=== PATIENT | female | born 1990 | race Caucasian/White ===

== ENCOUNTER → 2017-04-13 | Outpatient (CLI) | payer MEDICAID ==
[~2017-04-13] MED LIST: OXYC-360 PO
== END ==
LOC: HPND 10:17
DX: Z36 Encounter for antenatal screening of mother (principal); Z3A.18 18 weeks gestation of pregnancy
CPT/HCPCS: 76811

== ENCOUNTER 2017-05-28 08:19 | Emergency (ER) | payer MEDICAID ==
--- NOTE | 2017-05-28 09:07 | PD ---
HPI Chief Complaint Left lower abdominal pain that was really bad last night and kept her up and in tears . She's been having this pain for several weeks but last night it was worse Date Seen: May 28, 2017 Time Seen: 08:50 Travel History International Travel<30 Days: No Contact w/Intl Traveler<30Days: No Known Affected Area: No History of Present Illness HPI 27-year-old white female at [address] 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 and she has another child take care of so I believe she is just over done it Weeks Gestation: 24 Para: 1 : 2 History Obstetric History Obstetric History One vaginal delivery Social History Alcohol Use: No Tobacco Use: No Substance Abuse: No Allergies-Medications (Allergen,Severity, Reaction): Coded Allergies: No Known Allergies (Verified , 01/03/09) Home Meds Reported Medications Oxycodone/Acetaminophen (Percocet) 5 Mg/325 Mg Tab, 1 TAB PO Q4HPRN, #20 0 Refills FOR PAIN 01/05/09 Review of Systems General / Constitutional: No: Fever, Weight Gain, Chills, Other Eyes: No: Diploplia, Blurred Vision, Visual changes, Pain, Photophobia HENT: No: Headaches, Vertigo, Lightheadedness Cardiovascular: No: Irregular Rhythm, Chest Pain or Discomfort, Palpitations, Tachycardia, Syncope, Varicosities, Edema, Cyanosis Respiratory: No: Cough, Short of Breath, Other Gastrointestinal: Abdominal Pain, No: Nausea, Vomiting, Diarrhea Genitourinary: No: Decreased Urinary Output, Oliguria Musculoskeletal: No: Limited ROM, Weakness, Cramping, Edema, Pain Skin: No Rash, No Itching, No Dryness, No Lumps, No Change in Pigmentation, No Change in Nails, No Alopecia, No Lesions Neurologic: No: Weakness, Dizziness, Syncope, Focal Abnormalities, Coordination Problem, Headache, Slurred Speech, Seizures Psychiatric: No: Depression, Suicidal Ideations, Homicidal Ideation Endocrine: No: Heat Intolerance, Cold Intolerance, Polydipsia, Polyuria, Other Physical Exam Narrative GENERAL: Well-nourished, well-developed patient. SKIN: Warm and dry. HEAD: Normocephalic and atraumatic. EYES: No scleral icterus. No injection or drainage. ENT: No nasal drainage noted. Mucous membranes pink. Airway patent. NECK: Supple, trachea midline. No JVD. CARDIOVASCULAR: Regular rate and rhythm without murmurs, gallops, or rubs. RESPIRATORY: Breath sounds equal bilaterally. No accessory muscle use. BREASTS: Bilateral exam showed no masses , no retractions, no nipple discharge. ABDOMEN/GI: Abdomen soft, -tender in LLQ area size of baseball no mass , bowel sounds present, no rebound, no guarding Gravid to [-24] weeks size Fundal Height: [-24] GENITOURINARY: External Genitalia: intact and normal in appearance BUS glands: [-] Cervix: [post-] Dilatation: [-0] Effacement: [-0] Station: [-3] ] Membranes: [intact ] Uterine Contractions: [none-] FHT's: Category: [1-] Baseline: [133-] Reactive: [yes for 24 wks-] Variability: [mod-] Decels: [-0] EXTREMITIES: No cyanosis or edema. BACK: Nontender without obvious deformity. No CVA tenderness. NEUROLOGICAL: Awake and alert. Motor and sensory grossly within normal limits. Five out of 5 muscle strength in all muscle groups. Normal speech. Data Data Labs Urine dip is negative MDM Interpretation(s) Patient is 27-year-old white female at 24 weeks presents with lower abdominal pain in the left side specific area in the left lower quadrant that is the only spot is tender she has no other pain anywhere else in this been sore for several weeks but last night was really bad and the caused her tears and could not sleep and so she came in today. 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 Mccartney in a couple of days or return here Diagnosis Diagnosis: Primary Impression: Abdominal pain during in second trimester Additional Impression: 24 weeks gestation of Disposition: 01 DISCHARGE HOME Condition: Stable Jose Fierro II, MD May 28, 2017 09:07
[2017-05-28 10:38] LABS: BACTERIA, URINE OCC /hpf; BLOOD, URINE NEG (NEG); COMMENT (UR) CULT NOT INDICATED; CULTURE IF INDICATED CULT NOT INDICATED; GLUCOSE,URINE NEG (NEG); KETONE, URINE NEG (NEG); MUCUS URINE FEW /lpf (OCC); NITRITE,URINE NEG (NEG); PH, URINE 7.5 (5.0-8.5); SQUAMOUS EPITHELIAL CELL URINE 2 /hpf (0-5); URINE COLOR LIGHT-YELLOW (YELLW/STRAW)
== END 2017-05-28 09:29 | disposition home or self-care (01) ==
LOC: HOBED 08:19
DX: O26.892 Other specified pregnancy related conditions, second trimester (principal); R10.32 Left lower quadrant pain; Z3A.24 24 weeks gestation of pregnancy
CPT/HCPCS: 81001; 99283

== ENCOUNTER 2017-09-04 23:30 | Inpatient (IN) | payer MEDICAID ==
[~2017-09-04] VITALS: Ht 165.1 cm; Wt 95.0 kg
--- NOTE | 2017-09-04 23:50 | PD ---
HPI Chief Complaint LOF Travel History International Travel<30 Days: No Contact w/Intl Traveler<30Days: No Known Affected Area: No History of Present Illness HPI 27-year-old 001, IUP at 39.3 care uncomplicated except by interrupted care, history of son with the left nephrectomy due to hydronephrosis Patient presents complaining of leaking of fluid. She reports that she was awakened from sleep shortly after 10 PM by feeling a pop. She reports that she stood up and had a large gush of fluid and has been leaking ever since. She reports the contractions started about 10:30 to 11 PM and are now every 5 minutes. She reports they have increased in frequency but is still mild in nature. She reports good movement. She denies any vaginal bleeding. Weeks Gestation: 39 Para: 1 : 2 History Past Medical History Medical History: Denies Significant Hx Obstetric History Obstetric History 001 1 Past Surgical History Narrative Surgical Breast augmentation Family History Narrative Family History DM, HTN Social History Alcohol Use: No Tobacco Use: No Substance Abuse: No Allergies-Medications (Allergen,Severity, Reaction): Coded Allergies: No Known Allergies (Verified , 01/03/09) Home Meds Reported Medications Oxycodone/Acetaminophen (Percocet) 5 Mg/325 Mg Tab, 1 TAB PO Q4HPRN, #20 0 Refills FOR PAIN 01/05/09 Review of Systems Except as stated in HPI: all other systems reviewed are Neg Physical Exam Narrative GENERAL: Well-nourished, well-developed patient. SKIN: Warm and dry. HEAD: Normocephalic and atraumatic. EYES: No scleral icterus. No injection or drainage. ENT: No nasal drainage noted. Mucous membranes pink. Airway patent. NECK: Supple, trachea midline. No JVD. CARDIOVASCULAR: Regular rate and rhythm without murmurs, gallops, or rubs. RESPIRATORY: Breath sounds equal bilaterally. No accessory muscle use. BREASTS: Deferred ABDOMEN/GI: Abdomen soft, non-tender, bowel sounds present, no rebound, no guarding Gravid GENITOURINARY: External Genitalia: intact and normal in appearance. Grossly normal rugae, membranes appear to be grossly ruptured and amniosure is positive. No cervical or vaginal masses noted. SVE 3/80/-2 and cephalic FHT's: heart tones are in the 130s with moderate long-term variability, good accelerations, no decelerations noted. EXTREMITIES: No cyanosis or edema. BACK: Nontender without obvious deformity. NEUROLOGICAL: Awake and alert. Motor and sensory grossly within normal limits. Five out of 5 muscle strength in all muscle groups. Normal speech. Musculoskeletal: Grossly normal range of motion, gait, muscle strength Psychiatric: Grossly normal memory and affect MDM Plan Assessment/plan: 1. IUP at 38.3 2. PROM: Will admit for grossly ruptured membranes at term. Discussed with Dr. Abdi. We'll manage expectantly overnight and augment with oxytocin if indicated. Patient in agreement with the plan. 3. GBS negative 4. Reassuring testing with reactive NST and category 1 heart rate tracing, will continue monitoring 5. History of son with nephrectomy from hydronephrosis 6. Interrupted care Brandie Burgos MD Sep 04, 2017 23:50
[2017-09-04] MEDS: LACTATED RINGER'S 1000 ML INJ 1,000 ML IV SCH (23:58)
[2017-09-04] MEDS ORDERED: LACTATED RINGER'S 1000 ML INJ 1,000 ML IV PRN (23:58)
[2017-09-05] VITALS (57 sets, daily range): BP systolic 71–150; BP diastolic 34–91; PULSE 61–126; RESP 9–18; TEMP 97.8–98.9; O2SAT 97–100
[2017-09-05] MEDS ORDERED: OXYTOCIN 30 UNITS-500ML PREMIX 500 ML IV ONE
[2017-09-05] MEDS ORDERED: SODIUM CHLORID 0.9% 500 ML INJ 500 ML IV PRN
[2017-09-05] MEDS ORDERED: CITRIC ACID-SODIUM CITRATE LIQ 30 ML UDC PO SCH
[2017-09-05] MEDS ORDERED: MINERAL OIL 10 ML VIAL TOPICAL PRN
[2017-09-05] MEDS ORDERED: LIDOCAINE HCL 1% 50 ML VIAL INFIL PRN
[2017-09-05] MEDS ORDERED: LIDOCAINE HCL 1% 50 ML VIAL I-DERMAL PRN
[2017-09-05] MEDS ORDERED: SODIUM CHLOR 0.9% 1000 ML INJ 1,000 ML IV PRN (00:18)
[2017-09-05] MEDS ORDERED: PREN1TAB45 (00:21)
[2017-09-05 00:43] LABS: AUTOMATED NEUTROPHIL # 8.3 TH/MM3 (1.8-7.7); BASOPHIL % 0.4 % (0.0-2.0); EOSINOPHIL # 0.1 TH/MM3 (0-0.4); EOSINOPHIL % 0.7 % (0.0-4.0); HEMATOCRIT 35.6 % (35.0-46.0); HEMOGLOBIN 11.8 GM/DL (11.6-15.3); LYMPH % 23.4 % (9.0-44.0); LYMPHOCYTE # 2.9 TH/MM3 (1.0-4.8); MEAN CELL VOLUME 81.5 FL (80.0-100.0); MEAN CORPUSCULAR HEMOGLOBIN 27.1 PG (27.0-34.0); MEAN CORPUSCULAR HGB CONC 33.2 % (32.0-36.0); MEAN PLATELET VOLUME 9.2 FL (7.0-11.0); MONOCYTE # 1.1 TH/MM3 (0-0.9); NEUT % 66.5 % (16.0-70.0); PLATELET COUNT 221 TH/MM3 (150-450); RED BLOOD COUNT 4.37 MIL/MM3 (4.00-5.30); RED CELL DISTRIBUTION WIDTH 14.5 % (11.6-17.2); WHITE BLOOD COUNT 12.5 TH/MM3 (4.0-11.0)
[2017-09-05 02:04] LABS: BACTERIA, URINE OCC /hpf; BILIRUBIN, URINE NEG (NEG); BLOOD, URINE TRACE (NEG); GLUCOSE,URINE NEG (NEG); KETONE, URINE TRACE mg/dL (NEG); NITRITE,URINE NEG (NEG); SQUAMOUS EPITHELIAL CELL URINE 4 /hpf (0-5); URINE COLOR LIGHT-YELLOW (YELLW/STRAW); URINE LEUKOCYTE ESTERASE NEG (NEG)
[2017-09-05] MEDS ORDERED: OXYTOCIN 30 UNITS-500ML PREMIX 500 ML IV PRN (06:30)
[2017-09-05] MEDS ORDERED: ePHEDrine/NS 25 MG/5 ML SYRINGE ONE (08:20)
[2017-09-05] MEDS ORDERED: fentaNYL 2MCG-BUPIV 0.125% INJ 100 ML ONE (08:20)
--- NOTE | 2017-09-05 08:49 | PD.LABORPN ---
Subjective Subjective just had epirdural placed Objective Vital Signs Vital Signs Date Time Temp Pulse Resp B/P (MAP) Pulse Ox O2 Delivery O2 Flow Rate FiO2 09/05/17 07:46 80 115/72 (86) 09/05/17 07:25 69 125/75 (92) 09/05/17 07:25 98.1 18 09/05/17 06:00 97.8 09/05/17 04:00 97.9 18 09/05/17 03:46 69 127/76 (93) 09/05/17 02:00 97.8 Objective Pelvic Exam: Cervix: nursing check Presentation: [facility] Membranes: ruptured] Uterine Contractions:irreg FHT's: Category: I Baseline: [-] Reactive: [-] Variability: [-] Decels: [-] Weeks Gestation: 39 Pt started active labor?: No Medical induction of labor?: No Artificial rupture of membrane: No Assessment/Plan Problem List: (1) ROM (rupture of membranes), premature ICD Codes: O42.90 - Premature rupture of membranes, unspecified as to length of time between rupture and onset of labor, unspecified weeks of gestation Assessment and Plan 27 yo with iup at 38w3d admitted for PROM 1) Prom- on pitocin 2) GBS negative 3)History of son with nephrectomy from hydronephrosis 4). Interrupted care Jaycee Morillo MD Sep 05, 2017 08:49
[2017-09-05] MEDS: LACTATED RINGER'S 1000 ML INJ 1,000 ML IV SCH (08:59)
[2017-09-05] MEDS ORDERED: fentaNYL 2MCG-BUPIV 0.125% 100 ML EPIDURAL SCH (11:45)
[2017-09-05] MEDS ORDERED: DO NOT ADMINISTER ANTICOAGULANTS PRN (11:45)
[2017-09-05] MEDS ORDERED: NO SYSTEM NARCOTICS PRN (11:45)
[2017-09-05] MEDS ORDERED: ePHEDrine/NS 25 MG/5 ML SYRINGE IV PUSH PRN (11:45)
--- NOTE | 2017-09-05 12:52 | PD.OB.DELI ---
Weeks gestation: 39 Pt started active labor?: Yes Medical induction of labor?: No Artificial rupture of membrane: No Anesthesia: Epidural Episiotomy: None Vaginal Delivery: Normal Presentation: Occiput anterior, Compound (right arm) Nuchal Cord: None Delayed cord clamping (45 sec): Yes : Male Delivery date: Sep 05, 2017 Delivery time: 12:37 One Minute : 8 Five Minute : 9 Placenta: Spontaneous delivery Laceration: Vaginal laceration (one firgure of 8 with 3-0 chromic) Repair: Chromic interrupted Estimated blood loss: 400ml Jaycee Morillo MD Sep 05, 2017 12:52
[2017-09-05] MEDS ORDERED: ONDANSETRON ODT 4 MG TAB PO PRN (13:00)
[2017-09-05] MEDS ORDERED: ZOLPIDEM TARTRATE 5 MG TAB PO PRN (13:00)
[2017-09-05] MEDS ORDERED: ACETAMINOPHEN 325 MG TAB PO PRN (13:00)
[2017-09-05] MEDS ORDERED: BENZOCAINE 20% TOPICAL SPRAY 60 ML CAN TOPICAL PRN (13:00)
[2017-09-05] MEDS ORDERED: SODIUM CHLORIDE 0.9% FLUSH 10 ML FLUSH IV FLUSH PRN (13:00)
[2017-09-05] MEDS ORDERED: ALUMINUM/MAGNESIUM/SIMETH 30 ML CUP PO PRN (13:00)
[2017-09-05] MEDS ORDERED: DOCUSATE SODIUM 50 MG/SENNA 8.6 MG TAB PO PRN (13:00)
[2017-09-05] MEDS ORDERED: OXYTOCIN 30 UNITS-500ML PREMIX 500 ML IV SCH (13:00)
[2017-09-05] MEDS ORDERED: WITCH HAZEL 50%/GLYCERIN 12.5% 40 PAD JAR TOPICAL PRN (13:00)
[2017-09-05] MEDS ORDERED: DIPHTH/TETANUS/ACEL PERTUSSIS (BOOSTER) 0.5 ML VIAL/PFS IM ONE (16:00)
[2017-09-05] MEDS ORDERED: MEASLES, MUMPS, RUBELLA VACCINE 0.5 ML VIAL SQ ONE (16:00)
[2017-09-05] MEDS: SODIUM CHLORIDE 0.9% FLUSH 10 ML FLUSH IV FLUSH SCH (21:00)
[2017-09-06] MEDS: IBUPROFEN 800 MG TAB PO PRN ×2 (05:12→15:35)
[2017-09-06 08:00] VITALS: BP 127/64; PULSE 65; RESP 16; TEMP 97.8
--- NOTE | 2017-09-06 08:51 | HHI.OB ---
Subjective Post Day: 1 Remarks doing well and very happy Objective Vitals/I&O Vital Signs Date Time Temp Pulse Resp B/P (MAP) Pulse Ox O2 Delivery O2 Flow Rate FiO2 09/06/17 08:00 97.8 65 16 09/06/17 08:00 127/64 (85) 09/05/17 21:00 83 127/64 (85) 09/05/17 21:00 98.1 18 97 09/05/17 15:00 98.1 16 09/05/17 15:00 88 9 116/59 (78) 09/05/17 14:05 18 09/05/17 14:01 118 94/34 (54) 09/05/17 13:49 18 09/05/17 13:45 99 104/65 (78) 09/05/17 13:35 18 09/05/17 13:31 81 105/64 (78) 09/05/17 13:20 18 09/05/17 13:15 79 120/80 (93) 09/05/17 13:00 86 114/63 (80) 09/05/17 13:00 98.4 09/05/17 12:59 18 09/05/17 12:47 105 146/48 (80) 09/05/17 12:30 121 129/73 (91) 09/05/17 12:15 104 115/76 (89) 09/05/17 12:00 86 120/61 (80) 09/05/17 11:45 70 127/61 (83) 09/05/17 11:15 73 108/52 (70) 09/05/17 11:06 98.4 18 09/05/17 11:00 75 105/47 (66) 09/05/17 10:36 61 108/49 (68) 09/05/17 10:31 82 71/43 (52) 09/05/17 10:30 91 09/05/17 10:25 86 09/05/17 10:20 81 09/05/17 10:16 107 96/82 (87) 09/05/17 10:15 85 09/05/17 10:01 93 122/71 (88) 09/05/17 10:00 79 09/05/17 09:55 77 09/05/17 09:50 74 09/05/17 09:50 82 117/59 (78) 09/05/17 09:45 81 112/51 (71) 09/05/17 09:45 79 09/05/17 09:40 80 09/05/17 09:40 85 115/56 (75) 09/05/17 09:35 80 108/52 (70) 09/05/17 09:35 74 09/05/17 09:30 79 102/52 (69) 09/05/17 09:30 77 09/05/17 09:25 78 102/48 (66) 09/05/17 09:25 80 09/05/17 09:21 98.9 18 09/05/17 09:20 72 102/49 (66) 09/05/17 09:20 69 09/05/17 09:15 98 90/48 (62) 09/05/17 09:15 68 09/05/17 09:10 126 09/05/17 09:10 106 123/81 (95) 09/05/17 09:05 104 09/05/17 09:05 101 115/90 (98) 09/05/17 09:00 92 09/05/17 09:00 85 129/75 (93) 09/05/17 08:59 18 09/05/17 08:55 89 135/73 (93) 09/05/17 08:55 81 09/05/17 08:50 102 139/73 (95) 100 09/05/17 08:50 85 Objective Remarks GENERAL: Well-nourished, well-developed patient. CARDIOVASCULAR: Regular rate and rhythm without murmurs, gallops, or rubs. RESPIRATORY: Breath sounds equal bilaterally. No accessory muscle use. ABDOMEN/GI: Abdomen soft, non-tender. Fundus: Firm, non-tender at umbilicus. GENITOURINARY: Light to moderate bleeding. EXTREMITIES: No cyanosis or edema, non-tender, without signs of DVT. Medications and IVs Current Medications Medications (Trade) Dose Ordered Sig/Cy Route Start Time Stop Time Status Last Admin (NS Flush) 2 ml BID IV FLUSH 09/05/17 21:00 (NS Flush) 2 ml UNSCH PRN IV FLUSH 09/05/17 13:00 (Tylenol) 650 mg Q4H PRN PO 09/05/17 13:00 (Motrin) 800 mg Q8H PRN PO 09/05/17 13:00 09/06/17 05:12 (Americaine 20% Top Spr) 1 spray Q4H PRN TOPICAL 09/05/17 13:00 (Tucks Pads) 1 applic QID PRN TOPICAL 09/05/17 13:00 (Janina-Colace) 2 tab Q12H PRN PO 09/05/17 13:00 (Ambien) 5 mg HS PRN PO 09/05/17 13:00 (Mag-Al Plus Susp Liq) 15 ml Q8H PRN PO 09/05/17 13:00 (Zofran Odt) 4 mg Q6H PRN PO 09/05/17 13:00 Assessment/Plan Problem List: (1) ROM (rupture of membranes), premature ICD Codes: O42.90 - Premature rupture of membranes, unspecified as to length of time between rupture and onset of labor, unspecified weeks of gestation Assessment and Plan PPD 1 doing well anticipate PPD 2 discharge Ashlyn Mccartney MD Sep 06, 2017 08:51
[2017-09-06] MEDS: SODIUM CHLORIDE 0.9% FLUSH 10 ML FLUSH IV FLUSH SCH (19:33)
[2017-09-06 20:00] VITALS: BP 119/73; PULSE 67; RESP 16; TEMP 97.6; O2SAT 95
--- NOTE | 2017-09-07 08:19 | HHI.OB ---
Subjective Post Day: 2 Remarks no complaints, breast and bottlefeedin Objective Vitals/I&O Vital Signs Date Time Temp Pulse Resp B/P (MAP) Pulse Ox O2 Delivery O2 Flow Rate FiO2 09/06/17 20:00 97.6 09/06/17 20:00 67 16 119/73 (88) 95 Objective Remarks GENERAL: Well-nourished, well-developed patient. CARDIOVASCULAR: Regular rate and rhythm without murmurs, gallops, or rubs. RESPIRATORY: Breath sounds equal bilaterally. No accessory muscle use. ABDOMEN/GI: Abdomen soft, non-tender. Fundus: Firm, non-tender at umbilicus. GENITOURINARY: Light to moderate bleeding. EXTREMITIES: No cyanosis or edema, non-tender, without signs of DVT. Medications and IVs Current Medications Medications (Trade) Dose Ordered Sig/Cy Route Start Time Stop Time Status Last Admin (NS Flush) 2 ml BID IV FLUSH 09/05/17 21:00 (NS Flush) 2 ml UNSCH PRN IV FLUSH 09/05/17 13:00 (Tylenol) 650 mg Q4H PRN PO 09/05/17 13:00 (Motrin) 800 mg Q8H PRN PO 09/05/17 13:00 09/06/17 15:35 (Americaine 20% Top Spr) 1 spray Q4H PRN TOPICAL 09/05/17 13:00 (Tucks Pads) 1 applic QID PRN TOPICAL 09/05/17 13:00 (Janina-Colace) 2 tab Q12H PRN PO 09/05/17 13:00 (Ambien) 5 mg HS PRN PO 09/05/17 13:00 (Mag-Al Plus Susp Liq) 15 ml Q8H PRN PO 09/05/17 13:00 (Zofran Odt) 4 mg Q6H PRN PO 09/05/17 13:00 Assessment/Plan Problem List: (1) ROM (rupture of membranes), premature ICD Codes: O42.90 - Premature rupture of membranes, unspecified as to length of time between rupture and onset of labor, unspecified weeks of gestation (2) Vaginal delivery ICD Codes: O80 - Encounter for full-term uncomplicated delivery Assessment and Plan PPD 2 doing well, circ done yesterday anticipate PPD 2 discharge Discharge Planning today Attending Attestation pt seen by Cira Moody MD Sep 07, 2017 08:19
[2017-09-07] MEDS ORDERED: IBUP1TAB7 PO (08:20)
[2017-09-07 09:00] VITALS: BP 118/66; PULSE 67; RESP 16; TEMP 97.8
[2017-09-07] MEDS: SODIUM CHLORIDE 0.9% FLUSH 10 ML FLUSH IV FLUSH SCH (09:00)
== END 2017-09-07 12:30 | disposition home or self-care (01) | DRG 775 ==
LOC: HOBED 23:30 → H2EB 09-05 00:01 → H1EA 09-05 14:45
PROVIDERS: ADMIT Obstetrics & Gynecology; ATTEND Obstetrics & Gynecology
PROC: 10E0XZZ Delivery of Products of Conception, External Approach (ICD-10-PCS; principal; 2017-09-05)
PROC: 0KQM0ZZ Repair Perineum Muscle, Open Approach (ICD-10-PCS; 2017-09-05)
PROC: 3E0R3BZ Introduction of Anesthetic Agent into Spinal Canal, Percutaneous Approach (ICD-10-PCS; 2017-09-05)
PROC: 00HU33Z Insertion of Infusion Device into Spinal Canal, Percutaneous Approach (ICD-10-PCS; 2017-09-05)
DX: O42.02 Full-term premature rupture of membranes, onset of labor within 24 hours of rupture (principal); O32.6XX0 Maternal care for compound presentation, not applicable or unspecified; O70.1 Second degree perineal laceration during delivery; Z37.0 Single live birth; Z3A.38 38 weeks gestation of pregnancy
CPT/HCPCS: 59025; 80307; 81001; 84112; 85025; 85461; 86850; 86900; 86901; 87086; 90384; J2590; J2790; J3010; J7120